=== PATIENT | female | born 1965 | race Caucasian/White ===

== ENCOUNTER 2020-07-16 10:02 | Outpatient (CLI) | payer OTHER, SELFPAY ==
--- NOTE | 2020-07-16 10:14 | MM_ITS ---
WS: [id number] SCREENING DIGITAL MAMMOGRAM WITH CAD HISTORY: SCREENING COMPARISON: 05/30/2019 and 03/15/2018 Bilateral CC and MLO views submitted. Computer aided detection analyzed. Breast composition: There are scattered areas of fibroglandular density. No suspicious masses, microc alcifications or architectural distortion. Stable linear scar upper quadrant of the RIGHT breast. MM/[id number] IMPRESSION: BI-RADS: 2-Benign FOLLOW UP: 1 Year Follow-up
== END 2020-07-16 10:03 | disposition home or self-care (01) ==
LOC: RADSHAW 10:06
PROVIDERS: PCP Family Medicine; Visit Provider Family Medicine
DX: Z12.31 Encounter for screening mammogram for malignant neoplasm of breast (principal)
CPT/HCPCS: 77067

== ENCOUNTER 2022-01-23 10:10 | Outpatient (CLI) | payer OTHER, SELFPAY ==
--- NOTE | 2022-01-23 10:18 | MM_ITS ---
WS: [id number] Bilateral screening 3D tomosynthesis digital mammogram, 01/23/2022 Clinical Data: SCREENING Comparison: 07/16/2020, 05/30/2019, 04/08/2018, 03/15/2018, 12/10/2016, 10/23/2005, 02/18/2012, 05/15/2009. Findings: The breast parenchymal pattern shows fibroglandular tissue No spiculated masses or clustered calcific ations are seen. There are no secondary signs of carcinoma. MM/[id number] Impression: 1. Negative bilateral mammogram unchanged. 2. Recommend annual screening mammograms. BIRADS: 1-Negative FOLLOW UP: 1 Year Follow-up The CAD [employer] was used.
== END 2022-01-23 10:11 | disposition home or self-care (01) ==
LOC: RADSHAW 10:13
PROVIDERS: PCP Family Medicine; Visit Provider Family Medicine
DX: Z12.31 Encounter for screening mammogram for malignant neoplasm of breast (principal)
CPT/HCPCS: 77063; 77067

== ENCOUNTER 2023-04-16 14:48 | Outpatient (CLI) | payer BC, SELFPAY ==
--- NOTE | 2023-04-16 15:07 | MM_ITS ---
WS: [id number] BILATERAL SCREENING DIGITAL TOMOSYNTHESIS MAMMOGRAM WITH CAD HISTORY: SCREENING COMPARISON: 01/23/2022, 07/16/2020, 03/15/2018. Bilateral CC and MLO views with tomosynthesis and synthetic mammography submitted. Computer aided det ection analyzed. Breast composition: There are scattered areas of fibroglandular density. No suspicious masses, microc alcifications or architectural distortion. High density asymmetry noted on the RIGHT MLO projection t owards the axillary tail. This asymmetry extends over a significant distance along the superior breas t. This was also noted on a prior study from 2018 and 2017. Intermittently visualized therefore proba waldo a fold or scar of breast tissue. This is probably a fold within the breast causing the asymmetry. No corresponding abnormality on the CC projection. MM/[id number] IMPRESSION: BI-RADS: 2-Benign FOLLOW UP: 1 Year Follow-up
== END 2023-04-16 14:49 | disposition home or self-care (01) ==
LOC: RAD 14:51
PROVIDERS: PCP Family Medicine; Visit Provider Family Medicine
DX: Z12.31 Encounter for screening mammogram for malignant neoplasm of breast (principal)
CPT/HCPCS: 77063; 77067